=== PATIENT | male | born 1960 | race African-American/Black ===

== ENCOUNTER 2018-01-28 14:33 | Emergency (ER) | payer MEDICAID ==
[~2018-01-28] VITALS: Ht 188 cm; Wt 68.0 kg
[2018-01-28] MEDS ORDERED: SODIUM CHLORIDE 0.9% 1,000 ML IV ONE ×2 (15:02→15:17)
[2018-01-28 15:27] LABS: Basophils # (auto) 0.1 uL; Basophils % (auto) 0.8 % (0.0-2.0); Eosinophils # (auto) 0 uL; Eosinophils % (auto) 0.1 % (0.0-7.0); Hematocrit 46.7 % (41.0-53.0); Hemoglobin 15.5 g/dL (13.5-17.5); Lymphocytes # (auto) 1.4 uL; Lymphocytes % (auto) 10.7 % (10.0-50.0); Mean Corpuscular Hemoglobin 30.2 pg (28.0-32.0); Mean Corpuscular Hgb Conc. 33.3 g/dL (32.0-36.0); Mean Corpuscular Volume 90.9 fL (80.0-100.0); Monocytes # (auto) 1.2 uL; Monocytes % (auto) 8.8 % (0.0-12.0); Neutrophils # (auto) 10.8 uL; Neutrophils % (auto) 79.6 % (37.0-80.0); Nucleated Red Blood Cells % 0.2 %; Platelet Count (auto) 179 10^3/uL (140-450); Red Blood Cells 5.13 10^6/uL (4.5-5.90); Red Cell Distribution Width 15.4 % (11.8-14.3); White Blood Cell 13.5 10^3/uL (4.4-10.8)
[2018-01-28 19:11] LABS: Potassium 4.8 mmol/L (3.5-5.1)
[2018-01-28 19:12] LABS: Albumin 3.7 g/dL (3.4-5.0); Bilirubin, Total 0.6 mg/dL (0.2-1.0); Total Protein 7.1 g/dL (6.4-8.2)
[2018-01-28 20:51] VITALS: BP 105/64
== END 2018-01-28 22:33 | disposition home or self-care (01) ==
LOC: EDBD 14:33 → ER 14:33
DX: R10.10 Upper abdominal pain, unspecified (principal); R42 Dizziness and giddiness; I95.9 Hypotension, unspecified; F17.210 Nicotine dependence, cigarettes, uncomplicated; J45.909 Unspecified asthma, uncomplicated; I48.91 Unspecified atrial fibrillation; I10 Essential (primary) hypertension; R06.02 Shortness of breath
CPT/HCPCS: 36415; 71045; 74176; 80053; 83605; 83615; 83690; 83735; 83880; 84443; 84484; 85025; 87040; 93005; 94761; 96360; 99285; J7030

== ENCOUNTER 2018-11-21 01:04 | Emergency (ER) | payer MEDICAID ==
[~2018-11-21] VITALS: Ht 177.8 cm; Wt 68.0 kg
[2018-11-21] MEDS ORDERED: KETOROLAC TROMETH 60MG/2ML VIAL IM ONE ×3 (07:00→07:30)
[2018-11-21 07:26] VITALS: BP 122/77
== END 2018-11-21 07:40 | disposition home or self-care (01) ==
LOC: EDBD 01:04 → ER 01:04
DX: S86.912A Strain of unspecified muscle(s) and tendon(s) at lower leg level, left leg, initial encounter (principal); J45.909 Unspecified asthma, uncomplicated; I10 Essential (primary) hypertension; F17.210 Nicotine dependence, cigarettes, uncomplicated; F12.90 Cannabis use, unspecified, uncomplicated; F15.90 Other stimulant use, unspecified, uncomplicated; X50.9XXA Other and unspecified overexertion or strenuous movements or postures, initial encounter; Y93.89 Activity, other specified; Y99.8 Other external cause status; Y92.89 Other specified places as the place of occurrence of the external cause
CPT/HCPCS: 93971; 96372; 99284; J1885